=== PATIENT | female | born 2000 | race Caucasian/White ===

== ENCOUNTER 2019-10-29 01:14 | Emergency (ER) | payer SELFPAY ==
[2019-10-29 01:30] VITALS: BP 164/110; PULSE 116; RESP 18; TEMP 37.1; O2SAT 99; BMI 35.5
--- NOTE | 2019-10-29 01:36 | W.ED.FEMALGU ---
HPI - Female Genitourinary General: Chief complaint: Urogenital-Female Stated complaint: lower abd pain Time Seen by Provider: 10/29/19 01:33 History of Present Illness: HPI Narrative: Patient comes in today with pelvic pain and pressure for the last 2 to 3 days. Patient does have a history of PCOS, and irregular periods. Patient's last menstrual cycle was in June 2019. Patient appears well. Patient appears in no pain at rest. Associated symptoms: Reports abdominal pain (pelvic) Review of Systems General: Reports: 10 or more systems reviewed and unremarkable except in HPI and below GI: Reports: abdominal pain (pelvic) : Reports: irregular period PFSH ED PFSH: Social History Smoking and tobacco status: never smoked Physical Exam Const: COMMON NORMALS: no apparent distress and oriented x3 GENERAL APPEARANCE: cooperative HENMT: COMMON NORMALS: normocephalic, external ears normal, EAC's normal, TM's normal bilaterally and external nose normal HEAD & SCALP: normal to inspection and normocephalic FACE & SINUS: normal facial exam NOSE: external nose normal GENERAL EAR: hearing not grossly impaired EXTERNAL EAR: Yes external ears normal EXTERNAL AUDITORY CANAL: EAC's normal TYMPANIC MEMBRANE: TM's normal bilaterally MOUTH: oral and palatal mucosa normal THROAT: posterior oropharynx normal Eye: COMMON NORMALS: PERRL and EOMs intact bilaterally PUPIL: Yes PERRL Neck/C-Spine: COMMON NORMALS: full ROM and no lymphadenopathy Lymph: LYMPHATIC: no lymphedema noted Chest: COMMONS NORMALS: inspection of chest normal and palpation of chest normal Resp: COMMON NORMALS: normal respiratory effort and clear to auscultation bilaterally AUSCULTATION: clear to auscultation bilaterally Cardio: COMMON NORMALS: regular rate and regular rhythm RATE: regular rate RHYTHM: regular rhythm GI: COMMON NORMALS: normal to inspection, nondistended, normoactive bowel sounds AUSCULTATION: Yes normoactive bowel sounds PALPATION: Yes tender Details: LLQ (pelvic area) : COMMON NORMALS: Yes no CVA tenderness BLADDER/KIDNEY EXAM: Yes no CVA tenderness Back/Pelvis: COMMON NORMALS: no CVA tenderness and thoracic and lumbar spine normal to inspection Extremity: COMMON NORMALS: normal to inspection GENERAL: No edema Neuro: COMMON NORMALS: oriented x3, moves all extremities and no focal motor deficits Psych: COMMON NORMALS: mental status grossly normal and cooperative Skin: COMMON NORMALS: no rashes or lesions noted GENERAL SKIN EXAM: no rashes or lesions noted Course Vital Signs: Vital signs: Vital Signs Temperature 98.7 F 10/29/19 01:30 Pulse Rate 116 H 10/29/19 01:30 Respiratory Rate 18 10/29/19 01:30 Blood Pressure 164/110 10/29/19 01:30 Pulse Oximetry 99 10/29/19 01:30 MDM - Female MDM Narrative: Medical decision making narrative: Patient comes in today with complaints of left lower quadrant abdominal pain. Patient states that she has had this pain on and off for the last 2 weeks with worsening pain over the last day or 2. Patient has had irregular periods and has a history of ovarian cysts. Patient appears well. Exam notes abdomen soft nontender to palpation except in the left lower quadrant/pelvic area. Bowel sounds are present. Vital signs are normal. Differential diagnosis includes constipation, ovarian cyst, ectopic , renal calculi. Laboratory values noted a normal blood cell count. Metabolic panel noted was normal except for some mild elevation in glucose and alkaline phosphatase. Urinalysis was normal. hCG was negative. Reviewed exam consider that patient probably has an ovarian cyst due to her history. No signs of significant infection or other causes were identified at this time. Recommended patient restart her control pills and start on naproxen twice a day as needed for pain. Patient reported understanding of care plan and agreed with recommendations for follow-up as needed. Lab Data: Labs: Lab Results 10/29/19 10/29/19 10/29/19 Range/Units 01:40 01:44 01:44 WBC 9.4 (4.5-13.0) 10^3/ uL RBC 5.18 (4.1-5.3) 10^6/u L Hgb 14.0 (11.5-15.3) g/dL Hct 43.9 (37.0-47.0) % MCV 84.7 (81-99) fL MCH 27.0 L (28.0-34.0) pg MCHC 31.9 (30.0-36.0) g/dL RDW 12.3 (12.1-15.1) % Plt Count 331 (130-400) 10^3/c mm MPV 10.3 (7.4-10.4) fL Neut % (Auto) 54.6 % Lymph % (Auto) 37.5 % [place] % (Auto) 5.6 % Eos % (Auto) 1.8 % Baso % (Auto) 0.3 % Neut # (Auto) 5.1 (1.8-8.0) 10^3/u L Lymph # (Auto) 3.5 (1.5-6.5) 10^3/u L [place] # (Auto) 0.5 (0.2-0.9) 10^3/u L Eos # (Auto) 0.2 (0.0-0.8) 10^3/u L Baso # (Auto) 0.0 (0.0-0.1) 10^3/u L Nucleated RBC % (a uto) 0 % Nucleated RBCs # 0.0 /100WBC Sodium 138 (136-145) mmol/L Potassium 4.1 (3.5-5.1) mmol/L Chloride 100 (98-107) mmol/L Carbon Dioxide 27 (22-29) mmol/L Anion Gap 15.1 (5-19) BUN 7 (6-20) mg/dL Creatinine 0.8 (0.5-0.9) mg/dL GFR Calculation 91.4 (90-130) mL/min Glucose 202 H (65-115) mg/dL Calculated Osmolal ity 288 (285-295) mOsm/k g Calcium 9.9 (8.5-10.5) mg/dL Total Bilirubin 0.2 (0.15-1.2) mg/dL AST 25 (0-32) U/L ALT 28 (0-33) U/L Alkaline Phosphata se 134 H (35-105) IU/L Total Protein 8.0 (6.6-8.7) g/dL Albumin 4.1 (3.5-5.2) g/dL Globulin 3.9 (1.3-4.6) g/dL Lipase 32 (13-60) U/L Urine Color (Yellow) Urine Appearance (CLEAR) Urine pH (5-7) Ur Specific Gravit y (1.005-1.030) Urine Protein (Negative) Urine Glucose (UA) (Normal) Urine Ketones (Negative) Urine Blood (Negative) Urine Nitrate (Negative) Urine Bilirubin (NEGATIVE) Urine Urobilinogen (Negative) mg/dL Ur Leukocyte [place] ase (Negative) Urine HCG, Qual Negative (Negative) 10/29/19 Range/Units 01:47 WBC (4.5-13.0) 10^3/ uL RBC (4.1-5.3) 10^6/u L Hgb (11.5-15.3) g/dL Hct (37.0-47.0) % MCV (81-99) fL MCH (28.0-34.0) pg MCHC (30.0-36.0) g/dL RDW (12.1-15.1) % Plt Count (130-400) 10^3/c mm MPV (7.4-10.4) fL Neut % (Auto) % Lymph % (Auto) % [place] % (Auto) % Eos % (Auto) % Baso % (Auto) % Neut # (Auto) (1.8-8.0) 10^3/u L Lymph # (Auto) (1.5-6.5) 10^3/u L [place] # (Auto) (0.2-0.9) 10^3/u L Eos # (Auto) (0.0-0.8) 10^3/u L Baso # (Auto) (0.0-0.1) 10^3/u L Nucleated RBC % (a uto) % Nucleated RBCs # /100WBC Sodium (136-145) mmol/L Potassium (3.5-5.1) mmol/L Chloride (98-107) mmol/L Carbon Dioxide (22-29) mmol/L Anion Gap (5-19) BUN (6-20) mg/dL Creatinine (0.5-0.9) mg/dL GFR Calculation (90-130) mL/min Glucose (65-115) mg/dL Calculated Osmolal ity (285-295) mOsm/k g Calcium (8.5-10.5) mg/dL Total Bilirubin (0.15-1.2) mg/dL AST (0-32) U/L ALT (0-33) U/L Alkaline Phosphata se (35-105) IU/L Total Protein (6.6-8.7) g/dL Albumin (3.5-5.2) g/dL Globulin (1.3-4.6) g/dL Lipase (13-60) U/L Urine Color Yellow (Yellow) Urine Appearance Clear (CLEAR) Urine pH 5 (5-7) Ur Specific Gravit y 1.015 (1.005-1.030) Urine Protein Neg (Negative) Urine Glucose (UA) 2+ (Normal) Urine Ketones Negative (Negative) Urine Blood Neg (Negative) Urine Nitrate Negative (Negative) Urine Bilirubin Neg (NEGATIVE) Urine Urobilinogen Norm (Negative) mg/dL Ur Leukocyte [place] ase Negative (Negative) Urine HCG, Qual (Negative) Discharge Plan Discharge Patient Disposition: Home, Self-Care Clinical Impression: History of PCOS Ovarian cyst Qualifiers: Laterality: left Qualified Code(s): N83.202 - Unspecified ovarian cyst, left side Condition: Stable Prescriptions: New naproxen 500 mg tablet 500 mg PO BID PRN (Reason: pain) Qty: 30 RF: 0 Sprintec (28) 0.25-35 mg-mcg tablet 1 tab PO DAILY Qty: 28 RF: 3 Discharge Orders: Discharge Order (Routine); Ordered 10/29/19 Ordered By: Vignesh Briones Referrals: Laney العلي MD [Primary Care Provider] - Zita Watson FNP [Family Provider] - Discharge Diet: Usual diet Discharge Activity: Increase activity as tolerated Patient Instructions: Polycystic Ovarian Syndrome (ED) Activity Restrictions/Additional Instructions: Take medications as directed Avoid smoking with control as it can increase risk of blood clots The use of control does not protect against sexually transmitted illness Healthy diet Follow-up with primary care in one week Return to ER for worsening pain, high fever or new concerns Coding 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
[2019-10-29 01:54] LABS: Basophils % 0.3 %; Eosinophils # 0.2 10^3/uL (0.0-0.8); Eosinophils % 1.8 %; Hematocrit 43.9 % (37.0-47.0); Lymphocytes # 3.5 10^3/uL (1.5-6.5); Lymphocytes % 37.5 %; Mean Corpuscular HGB Conc 31.9 g/dL (30.0-36.0); Mean Corpuscular Volume 84.7 fL (81-99); Mean Platelet Volume 10.3 fL (7.4-10.4); Monocytes # 0.5 10^3/uL (0.2-0.9); Monocytes % 5.6 %; Neutrophils # 5.1 10^3/uL (1.8-8.0); Neutrophils % 54.6 %; Nucleated Red Blood Cells % 0 %; Platelet Count 331 10^3/cmm (130-400); Red Blood Count 5.18 10^6/uL (4.1-5.3); Red Cell Distribution Width 12.3 % (12.1-15.1); White Blood Count 9.4 10^3/uL (4.5-13.0)
[2019-10-29 02:08] LABS: Alanine Aminotransferase 28 U/L (0-33); Albumin Level 4.1 g/dL (3.5-5.2); Alkaline Phosphatase 134 IU/L (35-105); Anion Gap 15.1 (5-19); Aspartate Amino Transferase 25 U/L (0-32); Blood Urea Nitrogen 7 mg/dL (6-20); Calcium 9.9 mg/dL (8.5-10.5); Carbon Dioxide 27 mmol/L (22-29); Chloride 100 mmol/L (98-107); Creatinine Clr Calc Pharmacy 133.6908; Globulin 3.9 g/dL (1.3-4.6); Glomerular Filtration Rate 91.4 mL/min (90-130); Glucose 202 mg/dL (65-115); Lipase 32 U/L (13-60); Osmolality Calculated 288 mOsm/kg (285-295); Potassium 4.1 mmol/L (3.5-5.1); Sodium 138 mmol/L (136-145); Total Bilirubin 0.2 mg/dL (0.15-1.2)
[2019-10-29 02:16] LABS: Add Urine Microscopic? NO
[2019-10-29 02:19] LABS: Bilirubin Urine Neg (NEGATIVE); Blood Urine Neg (Negative); Glucose Urine UA 2+ (Normal); Ketones Urine Negative (Negative); Leukocyte Esterase Urine Negative (Negative); Nitrate Urine Negative (Negative); Protein Urine Neg (Negative); Specific Gravity, Urine 1.015 (1.005-1.030); Urine Appearance Clear (CLEAR); Urine Color Yellow (Yellow); Urobilinogen Urine Norm (Negative); pH Urine 5 (5-7)
[2019-10-29 02:46] VITALS: BP 124/92; PULSE 98; O2SAT 97
== END 2019-10-29 02:46 | disposition home or self-care (01) ==
PROVIDERS: Emergency Provider Nurse Practitioner Family; Family Provider Nurse Practitioner; PCP Family Medicine
DX: N83.202 Unspecified ovarian cyst, left side (principal)
CPT/HCPCS: 12345; 36415; 80053; 81003; 81025; 83690; 85025; 99282

== ENCOUNTER → 2021-10-17 16:16 | Outpatient (BNVA) | payer SELFPAY | PROVIDERS: Family Provider Nurse Practitioner; Visit Provider Nurse Practitioner Family | DX: R11.0 Nausea (principal) | CPT/HCPCS: 81025 ==

== ENCOUNTER 2023-02-15 14:36 | Emergency (ER) | payer SELFPAY ==
[2023-02-15] VITALS (9 sets, daily range): BP systolic 117–138; BP diastolic 72–90; PULSE 82–117; RESP 16; TEMP 37; O2SAT 96–99; BMI 37.5
--- NOTE | 2023-02-15 15:52 | XRR_ITS ---
PROCEDURE INFORMATION: Exam: XR Chest Exam date and time: 02/15/2023 5:29 PM Age: 22 years old Clinical indication: Other: Syncope TECHNIQUE: Imaging protocol: Radiologic exam of the chest. Views: 1 view. COMPARISON: No relevant prior studies available. FINDINGS: Lungs: Lungs are clear bilaterally. Pleural spaces: No pleural effusion. No pneumothorax. Heart/Mediastinum: The cardiac silhouette and mediastinal contours are unremarkable. Bones/joints: Unremarkable for age. XR/XR chest 1V portable [id number] IMPRESSION: Negative chest radiograph.
--- NOTE | 2023-02-15 16:36 | ED_ITS ---
Documented by User: Herman Carpio DO 02/16/23 06:53 HPI - Seizure General: Chief Complaint: Seizure Stated Complaint: passed out Time Seen by Provider: 02/15/23 16:36 Source: patient Mode of arrival: ambulatory History of Present Illness: HPI Narrative: 22-year-old female presents emergency room after syncopal episode at home. She had been outside for an hour she got little nauseous felt sick to her stomach she had a syncopal episode was brief no seizure-like activity. She had another syncopal episode here when they are initially trying to get her IV started. Na usea associated these no vomiting no chest pain no shortness of breath she has had syncope related to stress in the past. MD complaint: seizure Onset (ago): minute(s) Description of Episode: loss of consciousness Witnessed: Yes - by Bystander Trauma: No Seizure History: No Possible Precipitating Event: none Associated symptoms: Deny chest pain, chills, confusion, cough, diaphoresis, fever(s), anorexia, malaise, rash, short of breath, syncope or weakness Treatments prior to arrival: none Review of Systems Const: Denies: fever(s), chills, fatigue, malaise or diaphoresis ENMT: Denies: throat pain, ear or mastoid pain, nasal discharge or nasal congestion Card: Denies: chest pain, palpitations, irregular heart rhythm or syncope Resp: Denies: dyspnea, productive cough or non-productive cough GI: Reports: nausea; Denies: abdominal pain or vomiting : Denies: flank pain, difficulty voiding, dysuria, urinary frequency or urinary urgency Skin/Breast: Denies: rash or pruritus Neuro: Denies: confusion PFSH ED PFSH: Medical History Elevated BP without diagnosis of hypertension Oligomenorrhea Surgical History No pertinent past surgical history Family History Father Diabetes Grandmother Diabetes Paternal grandmother Breast cancer MGM-- uncertain of age of dx Family/Other Breast cancer, Onset Age: 20 Maternal aunt-- Denies family history of Colon cancer Ovarian cancer Heart disease Hyperlipidemia Family history of thyroid problem Hypertension Uterine cancer Stroke Social History Smoking and tobacco status: never smoked Alcohol intake: current Alcohol intake frequency: holidays/special occasions only Substance/Drug Use: never Physical Exam Const: COMMON NORMALS: no acute distress GENERAL APPEARANCE: cooperative and comfortable ORIENTATION/CONSCIOUSNESS: Yes awake, Yes oriented to person, Yes oriented to place and Yes oriented to time HENMT: COMMON NORMALS: normocephalic, atraumatic and hearing grossly normal bilaterally HEAD & SCALP: normocephalic and atraumatic Resp: COMMON NORMALS: normal respiratory effort, No retractions, No use of accessory muscles and clear to auscultation bilaterally AUSCULTATION: clear to auscultation bilaterally Cardio: COMMON NORMALS: regular rate, regular rhythm and No murmurs present (Cardio) RATE: regular rate RHYTHM: regular rhythm GI: COMMON NORMALS: Soft to palpation and No hepatosplenomegaly present AUSCULTATION: Yes normoactive bowel sounds PALPATION: Yes Soft to palpation, No Tenderness to palpation present (GI), No Guarding due to palpation present (GI) and Yes No hepatosplenomegaly present Extremity: COMMON NORMALS: normal to inspection, capillary refill normal, no clubbing, cyanosis or edema, no calf tenderness and no pedal edema Neuro: SENSORIUM/ORIENTATION: Yes oriented to person, Yes oriented to place and Yes oriented to time Skin: COMMON NORMALS: no rashes or lesions noted GENERAL SKIN EXAM: no rashes or lesions noted Course Vital Signs: Vital signs: Vital Signs Temperature 98.6 F 02/15/23 14:55 Pulse Rate 83 02/15/23 21:37 Respiratory Rate 16 02/15/23 14:55 Blood Pressure 130/78 02/15/23 21:37 Pulse Oximetry 96 02/15/23 21:37 Oxygen Delivery Me thod Room Air 02/15/23 21:00 MDM - Seizure MDM Narrative Medical decision making narrative: Care signed out to Dr. Brennan at change of shift. See final notes for diagnosis and disposition. 22-year-old female checked out to me by the previous physician at shift change. This lady had a syncopal episode. No definite seizure.Her vitals are good. Laboratory shows white blood cell count of 18 with a hemoglobin of 15.6. BMP is normal. Urinalysis is negative. Patient feels improved after IV fluid. She will be allowed discharge. Most likely diagnosis is heat syncope Lab Data 02/15/23 17:03 02/15/23 17:03 Labs: Radiology Impressions Chest X-Ray 02/15/23 15:52 IMPRESSION: Negative chest radiograph. Head CT 02/15/23 17:53 IMPRESSION: 1. No acute abnormality of the brain. 2. Incidental/nonacute findings are listed in the report. Laboratory Results WBC 18.2 10^3/uL (4.0-10.0) H 02/15/23 17:03 RBC 5.60 10^6/uL (4.1-5.3) H 02/15/23 17:03 Hgb 15.6 g/dL (11.5-15.3) H 02/15/23 17:03 Hct 47.6 % (37.0-47.0) H 02/15/23 17:03 MCV 85.0 fl (81-99) 02/15/23 17:03 MCH 27.9 pg (28.0-34.0) L 02/15/23 17:03 MCHC 32.8 g/dL (30.0-36.0) 02/15/23 17:03 RDW 12.1 % (12.1-15.1) 02/15/23 17:03 Plt Count 341 10^3/cmm (130-400) 02/15/23 17:03 MPV 10.1 fL (7.4-10.4) 02/15/23 17:03 Neut % (Auto) 64.5 % 02/15/23 17:03 Lymph % (Auto) 29.3 % 02/15/23 17:03 [place] % (Auto) 5.2 % 02/15/23 17:03 Eos % (Auto) 0.4 % 02/15/23 17:03 Baso % (Auto) 0.2 % 02/15/23 17:03 Neut # (Auto) 11.75 10^3/uL (1.8-7.7) H 02/15/23 17:03 Lymph # (Auto) 5.4 10^3/uL (0.8-4.8) H 02/15/23 17:03 [place] # (Auto) 0.9 10^3/uL (0.2-0.9) 02/15/23 17:03 Eos # (Auto) 0.1 10^3/uL (0.0-0.8) 02/15/23 17:03 Baso # (Auto) 0.0 10^3/uL (0.0-0.1) 02/15/23 17:03 Nucleated RBC % (auto) 0 % 02/15/23 17:03 Nucleated RBCs # 0.0 /100WBC 02/15/23 17:03 Sodium 139 mmol/L (136-145) 02/15/23 17:03 Potassium 3.7 mmol/L (3.5-5.1) 02/15/23 17:03 Chloride 100 mmol/L (98-107) 02/15/23 17:03 Carbon Dioxide 27 mmol/L (22-29) 02/15/23 17:03 Anion Gap 15.7 (5-19) 02/15/23 17:03 BUN 15 mg/dL (6-20) 02/15/23 17:03 Creatinine 0.9 mg/dL (0.5-0.9) 02/15/23 17:03 GFR Calculation 77.6 mL/min (90-130) L 02/15/23 17:03 Glucose 115 mg/dL (65-115) 02/15/23 17:03 Calculated Osmolality 290 mOsm/kg (285-295) 02/15/23 17:03 Calcium 9.9 mg/dL (8.5-10.5) 02/15/23 17:03 Total Bilirubin 0.3 mg/dL (0.15-1.2) 02/15/23 17:03 AST 19 U/L (0-32) 02/15/23 17:03 ALT 22 U/L (0-33) 02/15/23 17:03 Alkaline Phosphatase 113 U/L (35-105) H 02/15/23 17:03 Total Protein 7.8 g/dL (6.6-8.7) 02/15/23 17:03 Albumin 4.6 g/dL (3.5-5.2) 02/15/23 17:03 Globulin 3.2 g/dL (1.3-4.6) 02/15/23 17:03 HCG, Qual Negative (Negative) 02/15/23 20:04 Urine Color Yellow (Yellow) 02/15/23 20:04 Urine Appearance Clear (CLEAR) 02/15/23 20:04 Urine pH 5 (5-7) 02/15/23 20:04 Ur Specific [place] 1.020 (1.005-1.030) 02/15/23 20:04 Urine Protein Neg (Negative) 02/15/23 20:04 Urine Glucose (UA) Norm (Normal) 02/15/23 20:04 Urine Ketones Negative (Negative) 02/15/23 20:04 Urine Blood Neg (Negative) 02/15/23 20:04 Urine Nitrate Negative (Negative) 02/15/23 20:04 Urine Bilirubin Neg (Negative) 02/15/23 20:04 Urine Urobilinogen Norm mg/dL (Negative) 02/15/23 20:04 Ur Leukocyte Esterase Negative (Negative) 02/15/23 20:04 Discharge Plan Discharge Patient Disposition: Home Clinical Impression: Heat syncope Condition: Stable Prescriptions: No Action prednisone 20 mg tablet 40 mg PO DAILY 5 Days Qty: 10 0RF Discharge Orders: Discharge ED (Routine); Ordered 02/15/23 Ordered By: Daryl Brennan Patient Instructions: Heat Exhaustion (ED), Syncope (ED) Activity Restrictions/Additional Instructions: Return for repeated episodes of syncope or passing out, worsening mental status, other concerning symptoms stay in a cool environment for the next 48 hours. Push oral hydration with clear liquids. See your doctor next week Coding Level of Care Code ED Pulmonary Physical Therapist for Chg Fwd Documented by User: Daryl Brennan DO 02/16/23 04:04 HPI - Seizure General: Chief Complaint: Seizure Stated Complaint: passed out Time Seen by Provider: 02/15/23 16:36 PFSH ED PFSH: Medical History Elevated BP without diagnosis of hypertension Oligomenorrhea Surgical History No pertinent past surgical history Family History Father Diabetes Grandmother Diabetes Paternal grandmother Breast cancer MGM-- uncertain of age of dx Family/Other Breast cancer, Onset Age: 20 Maternal aunt-- Denies family history of Colon cancer Ovarian cancer Heart disease Hyperlipidemia Family history of thyroid problem Hypertension Uterine cancer Stroke Social History Smoking and tobacco status: never smoked Alcohol intake: current Alcohol intake frequency: holidays/special occasions only Substance/Drug Use: never Course Vital Signs: Vital signs: Vital Signs Temperature 98.6 F 02/15/23 14:55 Pulse Rate 83 02/15/23 21:37 Respiratory Rate 16 02/15/23 14:55 Blood Pressure 130/78 02/15/23 21:37 Pulse Oximetry 96 02/15/23 21:37 Oxygen Delivery Me thod Room Air 02/15/23 21:00 MDM - Seizure MDM Narrative Medical decision making narrative: 22-year-old female checked out to me by the previous physician at shift change. This lady had a syncopal episode. No definite seizure.Her vitals are good. Laboratory shows white blood cell count of 18 with a hemoglobin of 15.6. BMP is normal. Urinalysis is negative. Patient feels improved after IV fluid. She will be allowed discharge. Most likely diagnosis is heat syncope Lab Data 02/15/23 17:03 02/15/23 17:03 Labs: Radiology Impressions Chest X-Ray 02/15/23 15:52 IMPRESSION: Negative chest radiograph. Head CT 02/15/23 17:53 IMPRESSION: 1. No acute abnormality of the brain. 2. Incidental/nonacute findings are listed in the report. Laboratory Results WBC 18.2 10^3/uL (4.0-10.0) H 02/15/23 17:03 RBC 5.60 10^6/uL (4.1-5.3) H 02/15/23 17:03 Hgb 15.6 g/dL (11.5-15.3) H 02/15/23 17:03 Hct 47.6 % (37.0-47.0) H 02/15/23 17:03 MCV 85.0 fl (81-99) 02/15/23 17:03 MCH 27.9 pg (28.0-34.0) L 02/15/23 17:03 MCHC 32.8 g/dL (30.0-36.0) 02/15/23 17:03 RDW 12.1 % (12.1-15.1) 02/15/23 17:03 Plt Count 341 10^3/cmm (130-400) 02/15/23 17:03 MPV 10.1 fL (7.4-10.4) 02/15/23 17:03 Neut % (Auto) 64.5 % 02/15/23 17:03 Lymph % (Auto) 29.3 % 02/15/23 17:03 [place] % (Auto) 5.2 % 02/15/23 17:03 Eos % (Auto) 0.4 % 02/15/23 17:03 Baso % (Auto) 0.2 % 02/15/23 17:03 Neut # (Auto) 11.75 10^3/uL (1.8-7.7) H 02/15/23 17:03 Lymph # (Auto) 5.4 10^3/uL (0.8-4.8) H 02/15/23 17:03 [place] # (Auto) 0.9 10^3/uL (0.2-0.9) 02/15/23 17:03 Eos # (Auto) 0.1 10^3/uL (0.0-0.8) 02/15/23 17:03 Baso # (Auto) 0.0 10^3/uL (0.0-0.1) 02/15/23 17:03 Nucleated RBC % (auto) 0 % 02/15/23 17:03 Nucleated RBCs # 0.0 /100WBC 02/15/23 17:03 Sodium 139 mmol/L (136-145) 02/15/23 17:03 Potassium 3.7 mmol/L (3.5-5.1) 02/15/23 17:03 Chloride 100 mmol/L (98-107) 02/15/23 17:03 Carbon Dioxide 27 mmol/L (22-29) 02/15/23 17:03 Anion Gap 15.7 (5-19) 02/15/23 17:03 BUN 15 mg/dL (6-20) 02/15/23 17:03 Creatinine 0.9 mg/dL (0.5-0.9) 02/15/23 17:03 GFR Calculation 77.6 mL/min (90-130) L 02/15/23 17:03 Glucose 115 mg/dL (65-115) 02/15/23 17:03 Calculated Osmolality 290 mOsm/kg (285-295) 02/15/23 17:03 Calcium 9.9 mg/dL (8.5-10.5) 02/15/23 17:03 Total Bilirubin 0.3 mg/dL (0.15-1.2) 02/15/23 17:03 AST 19 U/L (0-32) 02/15/23 17:03 ALT 22 U/L (0-33) 02/15/23 17:03 Alkaline Phosphatase 113 U/L (35-105) H 02/15/23 17:03 Total Protein 7.8 g/dL (6.6-8.7) 02/15/23 17:03 Albumin 4.6 g/dL (3.5-5.2) 02/15/23 17:03 Globulin 3.2 g/dL (1.3-4.6) 02/15/23 17:03 HCG, Qual Negative (Negative) 02/15/23 20:04 Urine Color Yellow (Yellow) 02/15/23 20:04 Urine Appearance Clear (CLEAR) 02/15/23 20:04 Urine pH 5 (5-7) 02/15/23 20:04 Ur Specific [place] 1.020 (1.005-1.030) 02/15/23 20:04 Urine Protein Neg (Negative) 02/15/23 20:04 Urine Glucose (UA) Norm (Normal) 02/15/23 20:04 Urine Ketones Negative (Negative) 02/15/23 20:04 Urine Blood Neg (Negative) 02/15/23 20:04 Urine Nitrate Negative (Negative) 02/15/23 20:04 Urine Bilirubin Neg (Negative) 02/15/23 20:04 Urine Urobilinogen Norm mg/dL (Negative) 02/15/23 20:04 Ur Leukocyte Esterase Negative (Negative) 02/15/23 20:04 Discharge Plan Discharge Patient Disposition: Home Clinical Impression: Heat syncope Condition: Stable Prescriptions: No Action prednisone 20 mg tablet 40 mg PO DAILY 5 Days Qty: 10 0RF Discharge Orders: Discharge ED (Routine); Ordered 02/15/23 Ordered By: Daryl Brennan Patient Instructions: Heat Exhaustion (ED), Syncope (ED) Activity Restrictions/Additional Instructions: Return for repeated episodes of syncope or passing out, worsening mental status, other concerning symptoms stay in a cool environment for the next 48 hours. Push oral hydration with clear liquids. See your doctor next week Coding Level of Care Code ED Pulmonary Physical Therapist for Riaz Farrell
--- NOTE | 2023-02-15 16:53 | ECG_ITS ---
[facility] Test Date: 2023-02-15 Pat Name: Tanna Maza Department: Room: Gender: Female Photographic Process Worker: : 2000 Requested By: Rachel Ray Order Number: [id number] Zapien MD: Troy Vincent M.D. Measurements Intervals [place] Rate: 86 P: 29 [place]: 149 QRS: 44 QRSD: 90 T: 30 QT: 366 QTc: 439 Interpretive Statements SINUS RHYTHM No previous ECG available for comparison Electronically Signed On 02-16-2023 6:03:36 CDT by Troy Vincent M.D. [email or web address]
[2023-02-15] MEDS: sodium chloride 0.9% 1,000 ML 999 ML IV ×2 (17:02→18:40)
[2023-02-15 17:30] LABS: Basophils % 0.2 %; Eosinophils # 0.1 10^3/uL (0.0-0.8); Eosinophils % 0.4 %; Hematocrit 47.6 % (37.0-47.0); Hemoglobin 15.6 g/dL (11.5-15.3); Lymphocytes # 5.4 10^3/uL (0.8-4.8); Lymphocytes % 29.3 %; Mean Corpuscular HGB Conc 32.8 g/dL (30.0-36.0); Mean Corpuscular Hemoglobin 27.9 pg (28.0-34.0); Mean Platelet Volume 10.1 fL (7.4-10.4); Monocytes # 0.9 10^3/uL (0.2-0.9); Monocytes % 5.2 %; Neutrophils # 11.75 10^3/uL (1.8-7.7); Neutrophils % 64.5 %; Nucleated Red Blood Cells % 0 %; Platelet Count 341 10^3/cmm (130-400); Red Cell Distribution Width 12.1 % (12.1-15.1); White Blood Count 18.2 10^3/uL (4.0-10.0)
[2023-02-15 17:36] LABS: HCG, Serum Qual Negative (Negative)
[2023-02-15 17:45] LABS: Slide Review Slide Review Perform
[2023-02-15 17:46] LABS: Alanine Aminotransferase 22 U/L (0-33); Albumin Level 4.6 g/dL (3.5-5.2); Alkaline Phosphatase 113 U/L (35-105); Anion Gap 15.7 (5-19); Aspartate Amino Transferase 19 U/L (0-32); Blood Urea Nitrogen 15 mg/dL (6-20); Calcium 9.9 mg/dL (8.5-10.5); Carbon Dioxide 27 mmol/L (22-29); Chloride 100 mmol/L (98-107); Globulin 3.2 g/dL (1.3-4.6); Glomerular Filtration Rate 77.6 mL/min (90-130); Glucose 115 mg/dL (65-115); Osmolality Calculated 290 mOsm/kg (285-295); Potassium 3.7 mmol/L (3.5-5.1); Sodium 139 mmol/L (136-145); Total Bilirubin 0.3 mg/dL (0.15-1.2); Total Protein 7.8 g/dL (6.6-8.7)
--- NOTE | 2023-02-15 17:53 | CTR_ITS ---
PROCEDURE INFORMATION: Exam: CT Head Without Contrast Exam date and time: 02/15/2023 5:57 PM Age: 22 years old Clinical indication: Syncope and collapse; Patient HX: Syncopal episode TECHNIQUE: Imaging protocol: Computed tomography of the head without contrast. Sagittal and coronal reformatted images were created and reviewed. Radiation optimization: All CT scans at this facility use at least one of these dose optimization techniques: automated exposure control; mA and/or kV adjustment per patient size (includes targeted exams where dose is matched to clinical indication); or iterative reconstruction. REPORTING DATA: Count of CT and Cardiac NM exams in prior 12 months: This patient has received 0 known CTs and 0 known cardiac nuclear medicine studies in the 12 months prior to the current study. COMPARISON: No relevant prior studies available. RADIATION DOSE METRICS: Total DLP (mGy-cm): 1064.08 FINDINGS: Brain: No acute intracranial hemorrhage. No acute infarct. No intra-axial or extra-axial masses. Aguilar-white matter differentiation is preserved. No cerebral edema. No extra-axial fluid collections. No midline shift. No evidence for Chiari 1 malformation. Cerebral ventricles: No hydrocephalus. Paranasal sinuses: Visualized paranasal sinuses are clear. Mastoid air cells: Unremarkable as visualized. Auditory system: Patient has bilateral ear piercings and multiple nasal piercing. Orbital cavities: Globes and lenses, extraocular muscles, and optic nerves are intact bilaterally. No acute intraorbital abnormality. Bones/joints: No acute fracture. Soft tissues: No acute abnormality of the extracranial soft tissues. CT/CT head wo con* [id number] IMPRESSION: 1. No acute abnormality of the brain. 2. Incidental/nonacute findings are listed in the report.
[2023-02-15 20:12] LABS: Add Urine Microscopic? NO; Charge for UA Resulting for Rev
[2023-02-15 20:18] LABS: Bilirubin Urine Neg (Negative); Blood Urine Neg (Negative); Glucose Urine UA Norm (Normal); HCG Qualitative Urine. Negative (Negative); Ketones Urine Negative (Negative); Leukocyte Esterase Urine Negative (Negative); Nitrate Urine Negative (Negative); Protein Urine Neg (Negative); Urine Appearance Clear (CLEAR); Urine Color Yellow (Yellow); Urobilinogen Urine Norm (Negative); pH Urine 5 (5-7)
== END 2023-02-15 21:39 | disposition home or self-care (01) ==
PROVIDERS: Family Medicine; Physician Assistant; Emergency Provider Emergency Medicine
DX: T67.1XXA Heat syncope, initial encounter (principal); X30.XXXA Exposure to excessive natural heat, initial encounter
CPT/HCPCS: 70450; 71045; 80053; 81003; 81025; 84703; 85025; 93005; 96360; 96361; 99285; J7030